=== PATIENT | male | born 1995 | race African-American/Black ===

== ENCOUNTER 2016-09-11 22:55 | Emergency (ER) | payer OTHER ==
[~2016-09-11] VITALS: Ht 180.3 cm; Wt 75.0 kg
[2016-09-11 22:56] VITALS: BP 138/76; PULSE 66; RESP 20; TEMP 98.5; O2SAT 98
--- NOTE | 2016-09-11 23:45 | PD ---
HPI Chief Complaint: Injury Time Seen by Provider: 23:30 Travel History International Travel<30 days: No Contact w/Intl Traveler<30days: No Traveled to known affect area: No History of Present Illness HPI 20-year-old male presents for evaluation of right knee discomfort. Symptoms started 1 week ago after football practice. He denies any specific injury during practice. He reports that it feels like it is swollen. He sometimes has discomfort when he flexes his knee and sometimes feels like it is "popping. " Symptoms are mild, aggravated by activity or movement. He does report that 3 years ago while in high school he injured his knee during football. He had x- ray imaging and MRI imaging and was told that he has a "sprain." He has had occasional problems since then. He has no other complaints at this time. [facility] Past Medical History Medical History: Denies Significant Hx Immunizations Current: Yes Tetanus Vaccination: Unknown Influenza Vaccination: No Past Surgical History Surgical History: No Previous Surgery Social History Alcohol Use: No Tobacco Use: No Substance Use: No Allergies-Medications (Allergen,Severity, Reaction): Coded Allergies: No Known Allergies (Unverified , 09/11/16) Reported Meds & Prescriptions Reported Meds & Active Scripts Active No Active Prescriptions or Reported Medications Review of Systems Except as stated in HPI: all other systems reviewed are Neg Physical Exam Narrative GENERAL: Well-developed well-nourished male in no acute distress SKIN: Warm and dry. CARDIOVASCULAR: Regular rate and rhythm. No murmur appreciated. RESPIRATORY: No accessory muscle use. Clear to auscultation. Breath sounds equal bilaterally. MUSCULOSKELETAL: No obvious deformities. There is no joint effusion, no bursitis. There is no tenderness to palpation to the right knee or calf or ankle. There is no laxity on anterior/posterior/valgus/varus stress. There is no crepitus. There is no erythema. NEUROLOGICAL: Awake and alert. No obvious cranial nerve deficits. Motor grossly within normal limits. Normal speech. normal. Data Data Last Documented VS Vital Signs Date Time Temp Pulse Resp B/P Pulse Ox O2 Delivery O2 Flow Rate FiO2 09/11/16 22:56 98.5 66 20 138/76 98 MDM Medical Decision Making Medical Screen Exam Complete: Yes Emergency Medical Condition: Yes Medical Record Reviewed: Yes Differential Diagnosis Patellofemoral syndrome, patellar tendinitis, meniscal disruption, ligamentous disruption, strain, popliteal cyst Narrative Course Physical examination is reassuring. He has no bony tenderness to palpation and he has no joint swelling on examination. The patient has had intermittent discomfort in the right knee for the past 3 years, worse over the past week after football practice. I don't suspect that the patient has a fracture. Given his history I would like him to follow up with his primary care physician to get an MRI of the knee. It is recommended that he avoid football practice until then. He is agreeable with this plan. He is stable for discharge. Diagnosis Primary Impression: Internal derangement of right knee Additional Instructions: As discussed, follow-up with primary care physician for outpatient MRI imaging of the right knee. Avoid strenuous activity until then. Return for any emergent medical conditions. Med/Other Pt SpecificInfo: No Change to Meds Scripts No Active Prescriptions or Reported Meds Disposition: 01 DISCHARGE HOME Condition: Stable John Perez Sep 11, 2016 23:45
== END 2016-09-12 00:09 | disposition home or self-care (01) ==
LOC: NEPB 22:55
DX: M23.91 Unspecified internal derangement of right knee (principal)
CPT/HCPCS: 99283

== ENCOUNTER 2017-06-12 11:54 | Emergency (ER) | payer OTHER ==
[2017-06-12 12:40] VITALS: BP 152/70; PULSE 85; RESP 14; TEMP 98.6; O2SAT 100
--- NOTE | 2017-06-12 12:48 | RADRPT ---
EXAM DATE/TIME: 06/12/2017 12:21 [place] COMPARISON: No previous studies available for comparison. INDICATIONS : Patient states chest tightness. MEDICAL HISTORY : None. SURGICAL HISTORY : None. ENCOUNTER: Initial ACUITY: 1 day PAIN SCORE: 5/10 LOCATION: Bilateral chest FINDINGS: PA and lateral views of the chest demonstrate the lungs to be symmetrically aerated without evidence of mass, infiltrate or effusion. The cardiomediastinal contours are unremarkable. Osseous structure s are intact. CONCLUSION: Normal examination for a patient of this age. Frank Edgar MD on June 12, 2017 at 12:46 Board Certified Radiologist. This report was verified electronically.
--- NOTE | 2017-06-12 13:38 | PD ---
HPI Chief Complaint: Pain: Acute or Chronic Time Seen by Provider: 13:25 Travel History International Travel<30 days: No Contact w/Intl Traveler<30days: No Traveled to known affect area: No History of Present Illness HPI 21-year-old male presents for evaluation of chest pain. Symptoms started yesterday evening. He describes it as a sharp pain in the middle of his chest which is worse when coughing or with deep inspiration. He has not tried using any medication for symptom relief. He denies any upper respiratory symptoms, shortness of breath, recent travel, recent surgery. He denies fevers, chills, calf swelling. Denies tobacco use. He has no significant past medical history. He has no other complaints at this time. [facility] Past Medical History Immunizations Current: Yes Social History Alcohol Use: No Tobacco Use: No Substance Use: No Allergies-Medications (Allergen,Severity, Reaction): Coded Allergies: No Known Allergies (Unverified , 09/11/16) Reported Meds & Prescriptions Reported Meds & Active Scripts Active Ibuprofen 600 Mg Tab 600 Mg PO Q6H PRN Review of Systems Except as stated in HPI: all other systems reviewed are Neg Physical Exam Narrative GENERAL: Well-developed well-nourished male in no acute distress SKIN: Warm and dry. No rash HEAD: Atraumatic. Normocephalic. EYES: Pupils equal and round. No scleral icterus. No injection or drainage. ENT: No nasal bleeding or discharge. Mucous membranes pink and moist. NECK: Trachea midline. No JVD. CARDIOVASCULAR: Regular rate and rhythm. No murmur appreciated. RESPIRATORY: No accessory muscle use. Clear to auscultation. Breath sounds equal bilaterally. GASTROINTESTINAL: Abdomen soft, non-tender, nondistended. Hepatic and splenic margins not palpable. MUSCULOSKELETAL: No obvious deformities. No clubbing. No cyanosis. No edema. NEUROLOGICAL: Awake and alert. No obvious cranial nerve deficits. Motor grossly within normal limits. Normal speech. PSYCHIATRIC: Appropriate mood and affect; insight and judgment normal. Data Data Last Documented VS Vital Signs Date Time Temp Pulse Resp B/P (MAP) Pulse Ox O2 Delivery O2 Flow Rate FiO2 06/12/17 12:40 98.6 85 14 152/70 (97) 100 Orders Orders Electrocardiogram (06/12/17 ) Chest, Pa & Lat (06/12/17 ) [facility] Medical Decision Making Medical Screen Exam Complete: Yes Emergency Medical Condition: Yes Medical Record Reviewed: Yes Differential Diagnosis Pleurisy, pericarditis, pulmonary embolism, costochondritis, pneumothorax, hemothorax, acute coronary syndrome Narrative Course 21-year-old male with a one-day history of sharp chest pain which is worse with movement and deep inspiration and cough. Physical examination is reassuring. He is a young healthy 21-year-old male with no significant past medical history. There is a pleuritic component to his pain and I suspect pleurisy is the etiology. Pulmonary embolism was considered in the differential however the patient is negative by PERC criteria. A chest x-ray and EKG were both ordered by triage provider. Chest x-ray was normal. EKG reveals sinus bradycardia, LVH. The patient has no history of sick to be during exercise, no family history of sudden cardiac . He does play football. He has no systolic murmur. It was recommended that he follow- up with his primary care physician for outpatient echocardiogram to rule out Hocm. He is agreeable to this. He will be treated symptomatically with NSAIDs. Diagnosis Primary Impression: Pleurisy Additional Impression: Left ventricular hypertrophy by electrocardiogram Additional Instructions: As discussed, follow-up with primary care physician as soon as possible to obtain outpatient echocardiogram. Ibuprofen for pain. Return for any emergent medical conditions. Med/Other Pt SpecificInfo: Prescription(s) given Scripts Ibuprofen (Ibuprofen) 600 Mg Tab 600 MG PO Q6H Y for Pain/Inflammation, #40 TAB 0 Refills Prov: Nate Murphy MD 06/12/17 Disposition: 01 DISCHARGE HOME Condition: Stable John Perez Jun 12, 2017 13:38
[2017-06-12] MEDS ORDERED: IBUP-232 PO (13:39)
--- NOTE | 2017-06-13 18:38 | EKG ---
Date Performed: 06/12/2017 Time Performed: 13:37:24 PTAGE: 21 years EKG: SINUS BRADYCARDIA VOLTAGE CRITERIA FOR LVH ABNORMAL ECG NO PREVIOUS TRACING DOCTOR: Vibha Pirece Interpretating Date/Time 06/13/2017 18:35:25
== END 2017-06-12 14:09 | disposition home or self-care (01) ==
LOC: NEPK 11:54
DX: R09.1 Pleurisy (principal); I51.7 Cardiomegaly
CPT/HCPCS: 71020; 93005; 99284